=== PATIENT | male | born 1955 | race Caucasian/White ===

== ENCOUNTER 2022-06-09 17:29 | Emergency (ER) | payer MEDICARE, BC ==
[~2022-06-09] VITALS: Ht 182.9 cm; Wt 104.3 kg
[2022-06-09 17:32] VITALS: BP 164/81
[2022-06-09] MEDS ORDERED: methocarbamoL 500 MG TAB PO ONE ×2 (18:30→19:35)
[2022-06-09] MEDS ORDERED: predniSONE 20 MG TAB PO ONE (18:30)
[2022-06-09] MEDS ORDERED: traMADol 50 MG TAB (HOME DOSE PACK) PO ONE (19:35)
[2022-06-09] MEDS ORDERED: PRED20TA PO (19:41)
[2022-06-09] MEDS ORDERED: [UNRECOGNIZED DRUG - CODE] PO (19:41)
[2022-06-09] MEDS ORDERED: TRAM50TA2 PO (19:41)
[2022-06-10] MEDS ORDERED: PRED20TA PO (12:07)
[2022-06-10] MEDS ORDERED: [UNRECOGNIZED DRUG - CODE] PO (12:07)
[2022-06-10] MEDS ORDERED: TRAM50TA2 PO (12:07)
== END 2022-06-09 20:01 | disposition home or self-care (01) ==
LOC: M ED 17:29
DX: S46.002A Unspecified injury of muscle(s) and tendon(s) of the rotator cuff of left shoulder, initial encounter (principal); X50.0XXA Overexertion from strenuous movement or load, initial encounter; I25.10 Atherosclerotic heart disease of native coronary artery without angina pectoris
CPT/HCPCS: 73030; 93005; 99283; J7512